=== PATIENT | male | born 2000 | race Caucasian/White ===

== ENCOUNTER → 2023-07-29 06:38 | Day surgery (SDC) | payer OTHER, SELFPAY | LOC: GI 06:38 | PROVIDERS: ATTENDING PHYSICIAN Internal Medicine Gastroenterology; FAMILY PHYSICIAN Physician Assistant Medical | DX: R19.5 Other fecal abnormalities (principal); R19.4 Change in bowel habit | CPT/HCPCS: 45378 ==